=== PATIENT | male | born 1940 | race Caucasian/White ===

== ENCOUNTER 2019-04-13 19:41 | Inpatient (IN) ==
[2019-04-13] MEDS ORDERED: SODIUM CHLORIDE 0.9% 1000ML 1,000 ML IV ONE (20:07)
[2019-04-13 20:26] LABS: Basophils # (auto) 0.04 K/uL (0-0.2); Basophils % (auto) 0.6 %; Eosinophils # (auto) 0.42 K/uL (0-0.5); Hematocrit (blood only) 44.1 % (42-52); Hemoglobin 15.4 g/dL (14.0-18.0); Immature Granulocytes # (auto) 0.02 K/uL (0.00-0.02); Immature Granulocytes % (auto) 0.3 %; Lymphocytes # (auto) 1.94 K/uL (1.2-3.4); Lymphocytes % (auto) 27.5 %; Mean Corpuscular Hgb Conc 34.9 g/dL (32-36); Mean Corpuscular Volume 99.1 fL (80-100); Monocytes % (auto) 12.8 %; Neutrophils # (auto) 3.73 K/uL (1.4-6.5); Neutrophils % (auto) 52.8 %; Platelet Count 161 K/uL (130-400); RDW Coefficient of Variation 13.6 % (11.5-14.5); RDW Standard Deviation 48.9 fL (36.4-46.3); Red Blood Count 4.45 M/uL (4.7-6.1); White Blood Count 7.05 K/uL (4.8-10.8)
--- NOTE | 2019-04-13 20:31 | XRay Report ---
XR chest 1V portable CLINICAL HISTORY: weakness COMPARISON STUDY: No previous studies for comparison. FINDINGS: The heart is normal in size. There is no failure. There is no lobar consolidation. Slightly prominent basilar markings are likely atelectatic. There are no pleural effusions.[ IMPRESSION: No active disease in the chest. Electronically signed by: Obi Woodward M.D. 04/13/2019 8:29 PM
[2019-04-13 20:36] LABS: iSTAT Hemoglobin 15.6 g/dl (14.0-18.0); iSTAT Ionized Calcium 1.21 mmol/l (1.12-1.32); iSTAT Potassium 3.9 mEq/L (3.3-5.0)
[2019-04-13 20:37] LABS: INR 1.1 (0.9-1.1); Prothrombin Time 11.5 Seconds (9.0-12.0)
[2019-04-13 20:44] LABS: Alanine Aminotransferase 16 U/L (12-78); Albumin Level 3.5 gm/dl (3.4-5.0); BUN Creatinine Ratio 16.2 (10-20); Blood Urea Nitrogen 17 mg/dl (7-18); Calcium 8.5 mg/dl (8.5-10.1); Carbon Dioxide 30 mmol/L (21-32); Chloride 106 mmol/L (98-107); Creatinine Clr Calc Pharmacy 60.3 ml/min; Est GFR (African American) 78.2; Est GFR (Non-African American) 67.5; Glucose 100 mg/dl (70-99); Magnesium 2.2 mg/dl (1.8-2.4); Potassium 3.9 mmol/L (3.5-5.1); Sodium 139 mmol/L (136-145)
[2019-04-13] MEDS ORDERED: OPTIRAY 320 125ml IV PRN (20:49)
[2019-04-13 20:55] LABS: Albumin Globulin Ratio 1.1 (0.9-2); Alkaline Phosphatase 77 U/L (45-117); Aspartate Aminotransferase 13 U/L (15-37); Bilirubin,Total 0.3 mg/dl (0.2-1); Globulin 3.3 gm/dl (2.5-4.0); Total Protein 6.8 gm/dl (6.4-8.2); Troponin I < 0.015 ng/ml (0-0.045)
--- NOTE | 2019-04-13 20:55 | CT Scan Report ---
CT head/brain wo con CLINICAL HISTORY: Transient right eye temporal vision loss COMPARISON STUDY: No previous studies for comparison. TECHNIQUE: Axial CT of the brain is performed from the vertex to the skull base. IV contrast was not administered for this examination. A dose lowering technique was utilized adhering to the principles of ALARA. CT DOSE: FINDINGS: No intra or extra-axial mass lesions are visualized. There is no CT evidence of acute cortical infarc tion. There is no evidence of midline shift. There is no acute hemorrhage. No calvarial fractures ar e visualized. There are patchy white matter hypodensities likely on a small vessel basis. There is a small old left occipital infarct There is mild ventricular prominence likely secondary to volume loss There is no evidence of acute sinusitis IMPRESSION: 1. No acute intracranial findings 2. 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 04/13/2019 8:54 PM
--- NOTE | 2019-04-13 21:04 | CT Scan Report ---
CT angio neck with con CLINICAL HISTORY: Transient right eye temporal vision loss COMPARISON STUDY: No previous studies for comparison. TECHNIQUE: CT angiography was performed from the aortic arch to the skull base. MIP imaging was perfo rmed. The patient was scanned in a dynamic helical fashion during intravenous administration of 119 c c of Optiray 320. A dose lowering technique was utilized adhering to the principles of ALARA. CT DOSE: Technique: CT angiogram of the carotid and vertebral arteries was obtained using intravenous contrast and 3-D reconstruction. NASCET criteria was utilized. Findings: The visualized portions lung apices reveal pulmonary emphysema There is kinking of the proximal right common carotid artery without evidence of unilaterally signifi cant narrowing. There is calcified plaque at the level of the right carotid bulb and proximal right i nternal carotid artery resulting in a 25% diameter narrowing. There is no evidence of dissection or a neurysm. There is extensive calcific plaque within the left common carotid artery resulting in a 60% diameter narrowing. There is extensive calcific plaque at the level of the carotid bulb resulting a 37% diamet er stenosis. There is no evidence of hemodynamically significant vertebral stenosis. There is no evidence of verte bral dissection. IMPRESSION: 1. Moderately extensive calcific atheromatous plaque 2. No evidence of hemodynamically significant right carotid artery stenosis 3. 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 4. No evidence of hemodynamically significant left internal carotid artery stenosis 5. No evidence of vertebral artery stenosis Electronically signed by: Obi Woodward M.D. 04/13/2019 9:03 PM
--- NOTE | 2019-04-13 21:07 | CT Scan Report ---
CT angio head w con CLINICAL HISTORY: Transient right eye temporal vision loss TECHNIQUE: CT angiography of the head was performed in a dynamic helical fashion during intravenous a dministration of 119 cc of Optiray 320. MIP imaging was performed. A dose lowering technique was util ized adhering to the principles of ALARA. CT DOSE: 1073.87 mGy.cm COMPARISON STUDY: No previous studies for comparison. FINDINGS: There are no lesion suspicious for aneurysm. There are no major intracranial branch occlusi ons. The dural venous sinuses appear patent. IMPRESSION: Unremarkable CT angiography of the brain Electronically signed by: Obi Woodward M.D. 04/13/2019 9:06 PM
--- NOTE | 2019-04-13 21:13 | Emergency Department Note ---
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 He states that the "suddenly lost" peripheral vision in his right eye when he was playing cards this evening. The patient reports that he had a headache earlier today, but he denies any current headache. He denies any difficulty speaking, weakness, or current loss of vision. The patient's partner, at bedside, states that he had an episode of bilateral leg weakness and difficulty walking a few weeks ago. The patient reports that he saw his PCP, and she believed that this episode was caused by his chronic back pain. The patient reports that he has a history of cataract surgery in both eyes. He notes that he wears glasses. The patient denies using any daily eye drops. He reports that he take Lisinopril daily. He states that he has floaters in his vision, but they have no worsened recently. Home Medications Home Medications Medication Instructions Recorded Confirmed Type albuterol sulfate [Ventolin HFA] 2 puff INHALATION QID PRN 04/13/19 04/13/19 History atenolol 25 mg PO DAILY 04/13/19 04/13/19 History atorvastatin 40 mg PO DAILY 04/13/19 04/13/19 History budesonide-formoterol [Symbicort] 1 puff INHALATION QPM 04/13/19 04/13/19 History coenzyme Q10 [Co Q-10] 100 mg PO DAILY 04/13/19 04/13/19 History cyanocobalamin (vitamin B-12) 2,500 mcg PO DAILY 04/13/19 04/13/19 History levothyroxine 50 mcg PO DAILY 04/13/19 04/13/19 History lisinopril 5 mg PO DAILY 04/13/19 04/13/19 History nicotine (polacrilex) [Nicorette] 2 mg BUCCAL Q8H PRN 04/13/19 04/13/19 History omeprazole 20 mg PO BID 04/13/19 04/13/19 History pyridoxine (vitamin B6) [Vitamin 100 mg PO DAILY 04/13/19 04/13/19 History B-6] thiamine HCl (vitamin B1) [Vitamin 250 mg PO DAILY 04/13/19 04/13/19 History B-1] aspirin [Aspir-81] 81 mg PO BID 04/14/19 04/14/19 History Allergies Allergy/AdvReac Type Severity Reaction Status Date / Time No Known Allergies Allergy Unverified 04/13/19 21:52 Past Med/Surg History Medical History Back pain, chronic Hypertension Surgical History History of cataract surgery Family History Other Family history non-contributory Social History Preferred Language: Irish Communication Ability: Effective Beliefs That Will Affect Care: None Current Living Situation: Spouse Feels Safe at Home: Yes Smoking Status: Current every day smoker Tobacco Type: cigarettes and cigars Do You Dip or Chew Tobacco: No Second Hand Exposure: No Hx Alcohol Use: Yes Alcohol type: hard liquor Hx Substance Use: No Review of Systems See HPI for pertinent positives & negatives. and A total of 10 systems reviewed and were otherwise negative Physical Exam Vital Signs Vital Signs - 24 hr 04/13/19 19:43 04/13/19 21:54 Temperature 36.4 C L Temperature Source Oral Sepsis Recent Fever Within 48 Hours No Sepsis New/Unexplained Change in Mental Status No Sepsis Action Taken by Nursing No Action Required Pulse Rate 66 Pulse Rate [Left Apical] 70 Respiratory Rate 16 18 Respiratory Effort / Characteristics Non-Labored Spontaneous Non-Labored Respiratory Depth Normal Normal Respiratory Pattern Regular Blood Pressure 171/96 H Blood Pressure [Left Arm] 176/104 H Blood Pressure Mean 121 Blood Pressure Mean [Left Arm] 128 Pulse Oximetry 96 95 Oxygen Delivery Method Room Air Room Air GENERAL: Awake, alert, well-appearing, in no distress HENT: Normocephalic, atraumatic. Oropharynx with dry mucous membranes and otherwise unremarkable. EYES: Normal conjunctiva. Sclera non-icteric. EOMI. No nystamgus. PEARRL. NECK: Supple. No nuchal rigidity. FROM. No JVD. RESPIRATORY: CTAB. CARDIAC: Regular rate, normal rhythm. Extremities warm and well perfused. Pulses equal. ABDOMEN: Soft, non-distended. No tenderness to palpation. No rebound or guarding. No masses. RECTAL: Deferred. MUSCULOSKELETAL: Chest examination reveals no tenderness. The back is symmetrical on inspection without obvious abnormality. There is no CVA tenderness to palpation. No joint edema. LOWER EXTREMITIES: Calves are equal size bilaterally and non-tender. No edema. No discoloration. NEURO: Normal sensorium. No sensory or motor deficits noted. 5/5 strength and SILT x4 extremities. Cerebellar function intact, including finger to nose, alternating palms, heel to [place]. SKIN: No rash or jaundice noted. Course 1957: The patient was evaluated in room C10. A complete history and physical exam was performed. 2201: I reevaluated the patient and updated him and his family on the results. 2206: I spoke with Dr. Payne, [facility], about the patients case. He will further evaluate the patient. Consultations Consultation #1: I spoke with Dr. Payne, [facility], about the patients case. He will further evaluate the patient. Time: 22:07 Administered Medications Discontinued Medications Sodium Chloride (Nss 1000ml) 1,000 mls @ 999 mls/hr IV .Q1H1M ONE Stop: 04/13/19 21:07 Last Infusion: 04/13/19 21:57 Dose: 0 mls/hr Documented by: [id number] Admin: 04/13/19 20:30 Dose: 999 mls/hr Documented by: [id number] Ioversol (Optiray 320 125ml) 119 ml IV ONCE PRN PRN Reason: Interaction Checking Stop: 04/17/19 20:48 Last Admin: 04/13/19 20:49 Dose: 119 ml Documented by: [id number] Medical Decision Making Differential Diagnosis Differential includes acute coronary syndrome, myocardial infarction, CVA, TIA, anemia, infection, pneumonia, UTI, pyelonephritis, poor nutrition, dehydration, electrolyte disturbance,hypoglycemia. Medical Records Attestation: I reviewed the patient's medical records. Home Medications Current Medication List: was personally reviewed by me Laboratory Data Attestation: I reviewed the patient's lab results. Result diagrams: 04/13/19 20:13 04/13/19 20:13 Lab Results 04/13/19 04/13/19 04/13/19 Range/Units 20:13 20:13 20:13 WBC 7.05 (4.8-10.8) K/uL RBC 4.45 L (4.7-6.1) M/uL Hgb 15.4 (14.0-18.0) g/dL POC Hgb (14.0-18.0) g/dl Hct 44.1 (42-52) % POC Hct (42-52) % MCV 99.1 (80-100) fL MCH 34.6 H (25-34) pg MCHC 34.9 (32-36) g/dL RDW Std Deviation 48.9 H (36.4-46.3) fL RDW Coeff of Arnel 13.6 (11.5-14.5) % Plt Count 161 (130-400) K/uL MPV 9.0 (7.4-10.4) fL Immature Gran % (Auto) 0.3 % Neut % (Auto) 52.8 % Lymph % (Auto) 27.5 % Perry % (Auto) 12.8 % Eos % (Auto) 6.0 % Baso % (Auto) 0.6 % Immature Gran # (Auto) 0.02 (0.00-0.02) K/uL Neut # (Auto) 3.73 (1.4-6.5) K/uL Lymph # (Auto) 1.94 (1.2-3.4) K/uL Perry # (Auto) 0.90 H (0.11-0.59) K/uL Eos # (Auto) 0.42 (0-0.5) K/uL Baso # (Auto) 0.04 (0-0.2) K/uL PT 11.5 (9.0-12.0) Seconds INR 1.1 (0.9-1.1) APTT 27.0 (21.0-31.0) Seconds PTT Ratio 1.0 POC Sodium (135-144) mEq/L Sodium 139 (136-145) mmol/L POC Potassium (3.3-5.0) mEq/L Potassium 3.9 (3.5-5.1) mmol/L POC Chloride (101-112) mEq/L Chloride 106 (98-107) mmol/L Carbon Dioxide 30 (21-32) mmol/L POC Total CO2 (24-31) mEq/l Anion Gap 3.0 (3-11) POC Anion Gap (16-25) mmol/L POC BUN (7-18) mg/dl BUN 17 (7-18) mg/dl Creatinine 1.04 (0.6-1.4) mg/dl POC Creatinine (0.6-1.3) mg/dl Est Cr Clr Drug Dosing 60.3 ml/min Est GFR ( Amer) 78.2 Est GFR (Non-Af Amer) 67.5 BUN/Creatinine Ratio 16.2 (10-20) Glucose 100 H (70-99) mg/dl POC Glucose (other) (70-99) mg/dl Calcium 8.5 (8.5-10.1) mg/dl POC Ioniz Calcium Rita (1.12-1.32) mmol/l Phosphorus 3.0 (2.5-4.9) mg/dl Magnesium 2.2 (1.8-2.4) mg/dl Total Bilirubin 0.3 (0.2-1) mg/dl AST 13 L (15-37) U/L ALT 16 (12-78) U/L Alkaline Phosphatase 77 (45-117) U/L Troponin I < 0.015 (0-0.045) ng/ml Total Protein 6.8 (6.4-8.2) gm/dl Albumin 3.5 (3.4-5.0) gm/dl Globulin 3.3 (2.5-4.0) gm/dl Albumin/Globulin Ratio 1.1 (0.9-2) TSH 5.730 H (0.300-4.500) uIu/ml Free T4 1.01 (0.8-1.6) ng/dl Urine Color Urine Appearance (Clear) Urine pH (4.5-7.5) Ur Specific [place] (1.000-1.030) Urine Protein (Negative) Urine Glucose (UA) (Negative) Urine Ketones (Negative) Urine Blood (Negative) Urine Nitrite (Negative) Urine Bilirubin (Negative) Urine Urobilinogen (Negative) Ur Leukocyte Esterase (Negative) Urine WBC (Auto) (0-5) /hpf Urine RBC (Auto) (0-4) /hpf U Hyaline Cast (Auto) (0-5) /lpf U Epithel Cells (Auto) (0-5) /lpf Urine Bacteria (Auto) (Negative) 04/13/19 04/13/19 04/13/19 Range/Units 20:13 20:24 21:58 WBC (4.8-10.8) K/uL RBC (4.7-6.1) M/uL Hgb (14.0-18.0) g/dL POC Hgb 15.6 (14.0-18.0) g/dl Hct (42-52) % POC Hct 46 (42-52) % MCV (80-100) fL MCH (25-34) pg MCHC (32-36) g/dL RDW Std Deviation (36.4-46.3) fL RDW Coeff of Arnel (11.5-14.5) % Plt Count (130-400) K/uL MPV (7.4-10.4) fL Immature Gran % (Auto) % Neut % (Auto) % Lymph % (Auto) % Perry % (Auto) % Eos % (Auto) % Baso % (Auto) % Immature Gran # (Auto) (0.00-0.02) K/uL Neut # (Auto) (1.4-6.5) K/uL Lymph # (Auto) (1.2-3.4) K/uL [place] # (Auto) (0.11-0.59) K/uL Eos # (Auto) (0-0.5) K/uL Baso # (Auto) (0-0.2) K/uL PT (9.0-12.0) Seconds INR (0.9-1.1) APTT (21.0-31.0) Seconds PTT Ratio POC Sodium 140 (135-144) mEq/L Sodium (136-145) mmol/L POC Potassium 3.9 (3.3-5.0) mEq/L Potassium (3.5-5.1) mmol/L POC Chloride 101 (101-112) mEq/L Chloride (98-107) mmol/L Carbon Dioxide (21-32) mmol/L POC Total CO2 25 (24-31) mEq/l Anion Gap (3-11) POC Anion Gap 19.0 (16-25) mmol/L POC BUN 18 (7-18) mg/dl BUN (7-18) mg/dl Creatinine (0.6-1.4) mg/dl POC Creatinine 1.0 (0.6-1.3) mg/dl Est Cr Clr Drug Dosing ml/min Est GFR ( Amer) Est GFR (Non-Af Amer) BUN/Creatinine Ratio (10-20) Glucose (70-99) mg/dl POC Glucose (other) 104 H (70-99) mg/dl Calcium (8.5-10.1) mg/dl POC Ioniz Calcium Rita 1.21 (1.12-1.32) mmol/l Phosphorus Cancelled (2.5-4.9) mg/dl Magnesium (1.8-2.4) mg/dl Total Bilirubin (0.2-1) mg/dl AST (15-37) U/L ALT (12-78) U/L Alkaline Phosphatase (45-117) U/L Troponin I (0-0.045) ng/ml Total Protein (6.4-8.2) gm/dl Albumin (3.4-5.0) gm/dl Globulin (2.5-4.0) gm/dl Albumin/Globulin Ratio (0.9-2) TSH Cancelled (0.300-4.500) uIu/ml Free T4 (0.8-1.6) ng/dl Urine Color Yellow Urine Appearance Clear (Clear) Urine pH 6.0 (4.5-7.5) Ur Specific [place] > 1.045 H (1.000-1.030) Urine Protein Negative (Negative) Urine Glucose (UA) Negative (Negative) Urine Ketones Negative (Negative) Urine Blood Trace H (Negative) Urine Nitrite Negative (Negative) Urine Bilirubin Negative (Negative) Urine Urobilinogen Negative (Negative) Ur Leukocyte Esterase Trace H (Negative) Urine WBC (Auto) 5-10 H (0-5) /hpf Urine RBC (Auto) 0-4 (0-4) /hpf U Hyaline Cast (Auto) 0 (0-5) /lpf U Epithel Cells (Auto) 5-10 H (0-5) /lpf Urine Bacteria (Auto) Negative (Negative) Imaging Data Radiologist's Impression: Radiology results as stated below per my review and the radiologist's interpretation: CT angio head w con CLINICAL HISTORY: Transient right eye temporal vision loss TECHNIQUE: CT angiography of the head was performed in a dynamic helical fashion during intravenous administration of 119 cc of Optiray 320. MIP imaging was performed. A dose lowering technique was utilized adhering to the principles of ALARA. CT DOSE: 1073.87 mGy.cm COMPARISON STUDY: No previous studies for comparison. FINDINGS: There are no lesion suspicious for aneurysm. There are no major intracranial branch occlusions. The dural venous sinuses appear patent. IMPRESSION: Unremarkable CT angiography of the brain Electronically signed by: Obi Woodward M.D. 04/13/2019 9:[address] angio neck with con CLINICAL HISTORY: Transient right eye temporal vision loss COMPARISON STUDY: No previous studies for comparison. TECHNIQUE: CT angiography was performed from the aortic arch to the skull base. MIP imaging was performed. The patient was scanned in a dynamic helical fashion during intravenous administration of 119 cc of Optiray 320. A dose lowering technique was utilized adhering to the principles of ALARA. CT DOSE: Technique: CT angiogram of the carotid and vertebral arteries was obtained using intravenous contrast and 3-D reconstruction. NASCET criteria was utilized. Findings: The visualized portions lung apices reveal pulmonary emphysema There is kinking of the proximal right common carotid artery without evidence of unilaterally significant narrowing. There is calcified plaque at the level of the right carotid bulb and proximal right internal carotid artery resulting in a 25% diameter narrowing. There is no evidence of dissection or aneurysm. There is extensive calcific plaque within the left common carotid artery resulting in a 60% diameter narrowing. There is extensive calcific plaque at the level of the carotid bulb resulting a 37% diameter stenosis. There is no evidence of hemodynamically significant vertebral stenosis. There is no evidence of vertebral dissection. IMPRESSION: 1. Moderately extensive calcific atheromatous plaque 2. No evidence of hemodynamically significant right carotid artery stenosis 3. 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 4. No evidence of hemodynamically significant left internal carotid artery stenosis 5. No evidence of vertebral artery stenosis Electronically signed by: Obi Woodward M.D. 04/13/2019 9:[address] head/brain wo con CLINICAL HISTORY: Transient right eye temporal vision loss COMPARISON STUDY: No previous studies for comparison. TECHNIQUE: Axial CT of the brain is performed from the vertex to the skull base. IV contrast was not administered for this examination. A dose lowering technique was utilized adhering to the principles of ALARA. CT DOSE: FINDINGS: No intra or extra-axial mass lesions are visualized. There is no CT evidence of acute cortical infarction. There is no evidence of midline shift. There is no acute hemorrhage. No calvarial fractures are visualized. There are patchy white matter hypodensities likely on a small vessel basis. There is a small old left occipital infarct There is mild ventricular prominence likely secondary to volume loss There is no evidence of acute sinusitis IMPRESSION: 1. No acute intracranial findings 2. 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 04/13/2019 8:54 PM XR chest 1V portable CLINICAL HISTORY: weakness COMPARISON STUDY: No previous studies for comparison. FINDINGS: The heart is normal in size. There is no failure. There is no lobar consolidation. Slightly prominent basilar markings are likely atelectatic. There are no pleural effusions.[ IMPRESSION: No active disease in the chest. Electronically signed by: Obi Woodward M.D. 04/13/2019 8:29 PM ECG Data Attestation: I personally reviewed and interpreted this ECG as follows: Indication: other (visual disturbance) Rate (beats per minute): 66 Rhythm: sinus rhythm Findings: + other (normal axis) and + PAC; no acute ischemic change Blood Pressure Blood Pressure Findings: Elevated blood pressure Blood Pressure Disposition: further management by hospitalist AVILA Narrative The patient is a pleasant 78 y/o gentleman with a pmhx of HTN, HLD who presents to the emergency department with transient loss of temporal peripheral vision of right per HPI. Patient reports playing cards today shortly prior to arrival when his symptoms began. Upon arrival symptoms resolved. On arrival the patient is in NAD, AFVSS. Patient appears clinically dry. No gross visual field deficits on exam. Speech fluent and normal. EOMI. No nystamgus. PEARRL. Cerebellar function intact including [id number], alternating palms, [id number]. 5/5 strength and SILT x 4 extremities. EKG without evidence of acute ischemia. CXR negative. WBC, H/H, platelets wnl. Chemistry without acidosis. LFTs and electrolytes unremarkable. Troponin negative. UA without convincing infection. Limited bedside ocular US negative for gross vitreous or retinal detachment. CT/CTA of head and neck demonstrates old small left occipital lobe infarct. Thus, patient's sx could be c/w TIA. Given evidence of old stroke, reasonable to admit patient for further stroke evaluation and likey MRI and neurology consultation. Case was discussed with Dr. Payne, [facility] hospitalist, who will evaluate the patient for admission. Impression & Plan Stroke-like symptoms Discharge Plan Visit Data *Final* Discharge Date/Time: 04/13/19 23:20 Chief Complaint: Visual Disturbance Stated Complaint: POSSIBLE STROKE Other Complaint: TIA Symptoms ED Provider: Dileep Ruelas Discharge Problem: Stroke-like symptoms Patient Disposition: Admitted As Inpatient Discharge Instructions Interventions: ED Discharge Assessment Last Done: 04/13/19 23:20 The scribe's documentation has been prepared under my direction and personally reviewed by me in its entirety. I confirm that the note above accurately reflects all work, treatment, procedures, and medical decision making performed by me.
[2019-04-13 22:09] LABS: Appearance Urine Clear (Clear); Bacteria Urine Automated Negative (Negative); Bilirubin Urine Negative (Negative); Blood Urine Trace (Negative); Cast Urine Automated 0 /lpf (0-5); Color Urine Yellow; Glucose Urine UA Negative (Negative); Ketones Urine Negative (Negative); Leukocyte Esterase Urine Trace (Negative); Nitrite Urine Negative (Negative); Protein Urine Negative (Negative); RBC Urine Automated 0-4 /hpf (0-4); Specific Gravity Urine > 1.045 (1.000-1.030); Urobilinogen Urine Negative (Negative)
[2019-04-13 22:14] LABS: T4 Free Thyroxine 1.01 ng/dl (0.8-1.6)
[2019-04-13] MEDS ORDERED: PHARMACIST DISCHARGE MED REC CONSULT PRN (23:40)
[2019-04-13] MEDS ORDERED: ONDANSETRON INJ 2 MG/ML 2 ML VIAL IV PRN (23:40)
[2019-04-13] MEDS ORDERED: ACETAMINOPHEN 325 MG TAB PO PRN (23:40)
[2019-04-13] MEDS ORDERED: POLYETHYLENE (MIRALAX) 17 GM PACK PO PRN (23:40)
[2019-04-13] MEDS ORDERED: ALBUTEROL HFA 8 GM INHALER INH PRN (23:40)
[2019-04-13] MEDS ORDERED: NICOTINE POLACRILEX 2 MG GUM MT PRN (23:40)
[2019-04-13] MEDS ORDERED: NITROGLYCERIN SL 0.4 MG/TAB TAB SL PRN (23:40)
--- NOTE | 2019-04-14 00:07 | History and Physical Report ---
DATE OF ADMISSION: 04/13/2019 CHIEF COMPLAINT: Transient right peripheral vision loss. HISTORY OF PRESENT ILLNESS: This 78-year-old male with past medical history significant for hypertension, tobacco abuse, COPD, hyperlipidemia, hypothyroidism, GERD, presents with alcoholism, presents with transient right peripheral vision loss. The patient is visiting his daughter's house. He and his live about 3 hours from here. They were playing cards today when his suddenly noticed right eye peripheral vision loss. He says it lasted for about 1-2 hours, now he is back to his normal and never had this issue before. He had some left frontal headache, but that is gone now. He is currently resting comfortably and he is hemodynamically stable. Denies any other complaints. Currently no headache, no dizziness, currently seeing okay. No earache, no runny nose, no sore throat, no difficulty swallowing. Appetite is good. Sleeps okay. He uses CPAP at night. No night sweats. No recent weight loss. He thinks, he might have gained a little bit of weight. No chest pain, no shortness of breath. Has occasional cough which is usual for him. No fever, no chills, no nausea, no vomiting, no abdominal pain. Normal bowel and bladder movements. No blood in the stools, no black stools, no hematuria, no burning micturition. No swelling in the legs. He says couple of weeks ago for couple of minutes had difficulty ambulating because of weakness in the legs, but ambulating fine since then.. Currently he is walking, ambulating fine without any difficulty. He has also history of chronic back pain, takes Tylenol and plan to see a pain doctor next week. ALLERGIES: No known drug allergies. PAST MEDICAL HISTORY: As mentioned above. PAST SURGICAL HISTORY: Had right wrist fracture. MEDICATIONS: The patient is on albuterol 2 puffs inhalation q.i.d. p.r.n., metoprolol 25 mg p.o. daily, atorvastatin 40 mg p.o. daily, Symbicort 1 puff q.p.m., Coenzyme Q10 100 mg p.o. daily, vitamin B12 2500 mcg p.o. daily, levothyroxine 50 mcg p.o. daily, lisinopril 5 mg p.o. daily, nicotine 2 mg buccal q. 8 hours p.r.n., omeprazole 20 mg p.o. b.i.d., vitamin B6 100 mg p.o. daily, vitamin B1 250 mg p.o. daily. FAMILY HISTORY: Noncontributory. SOCIAL HISTORY: Smokes half pack a day for many years but right now he smokes 2 cigars daily. Alcohol, he used to drink heavily but lately cutting down. He drinks about a couple of shots of hard liquor, but not regularly. Last drink was last . He denies any withdrawal symptoms. Lives with his . REVIEW OF SYMPTOMS: As per HPI. Rest of review of symptoms negative. PHYSICAL EXAMINATION: GENERAL: The patient is of moderate build, not in acute distress. VITAL SIGNS: Temperature 36.4, pulse 70, respiratory rate 18, blood pressure 176/104, oxygen 95% room air. HEENT: No pallor, no icterus. Pupils equal, round, reactive to light. Extraocular muscles intact. Able to count fingers in all 4 quadrants in both eyes. NECK: No JVD, no neck masses, no carotid bruits. CARDIOVASCULAR: S1, S2 heard, regular rate and rhythm, no murmur, no gallop. RESPIRATORY SYSTEM: Normal AP diameter. No accessory muscle use. No wheezing, no crackles. ABDOMEN: Soft, bowel sounds present. Nontender. No distention. CENTRAL NERVOUS SYSTEM: Cranial nerves II-XII grossly nonfocal. Pulse 5/5 in all extremities. No pronator drift. Autobq-px-[id number] test normal. Heel to [place] test normal. Sensation is intact. Position sense intact. Babinski negative. EXTREMITIES: No edema, no erythema. LABS: WBC 7, hemoglobin 15.4, hematocrit 44.1, platelets 161. PT 11.5, INR 1.1, APTT 27. Sodium 139, potassium 3.9, chloride 106, bicarbonate 30, BUN 17, creatinine 1.04, serum glucose 100, calcium 8.5, magnesium 2.2, total bilirubin 0.3, AST 13, ALT 16, alkaline phosphatase 77. Troponin I less than 0.015. TSH 5.7, free T4 1.01. Urinalysis, trace leukocyte esterase. CT angio neck moderate extensive calcific erythematous plaque, no evidence of hemodynamically significant right carotid artery stenosis 60% diameter narrowing of left common carotid artery. No evidence of hemodynamically significant left internal carotid artery stenosis. No evidence of vertebral artery stenosis. 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 Chest x-ray, no active disease in the chest. EKG: Sinus rhythm with PACs at a rate of 66, no previous ECG is available. ASSESSMENT AND PLAN: This is an 78-year-old male who presents with transient right peripheral vision loss. 1. Transient right peripheral vision loss of about 1-2 hours, currently vision is back to his normal. No similar episodes. Initial workup is negative except for old left occipital infarct on the CAT scan. The patient is on statin and also on aspirin twice daily. We will do full stroke workup with an MRI of the head, echocardiogram. PT and OT, speech evaluation. Neurology consult in a.m. Closely monitor on tele floor. 2. History of hypertension. Continue his atenolol and lisinopril. We will monitor his blood pressure. 3. History of hyperlipidemia. Continue statin. 4. History of chronic obstructive pulmonary disease, tobacco abuse. Continue his home inhalers, currently stable. 5. History of hypothyroidism. Continue Synthroid. 6. History of gastroesophageal reflux disease. Continue omeprazole. 7. History of alcoholism. He used to drink heavily in the past, but is cutting down. He drinks couple of shots of hard liquor daily, but try to not drink every day, last drink was on last . Says he does not have any withdrawal symptoms. We will continue his home multivitamin . Will monitor for any withdrawals. 8. UA mildly positive. Will follow cultures. 9. Deep venous thrombosis prophylaxis, sequential compression devices for now. 10. Disposition: Close monitor in the tele floor. Level 1 full code. MTDD
[2019-04-14 05:52] LABS: Basophils # (auto) 0.03 K/uL (0-0.2); Basophils % (auto) 0.4 %; Eosinophils # (auto) 0.54 K/uL (0-0.5); Eosinophils % (auto) 6.6 %; Hematocrit (blood only) 43.6 % (42-52); Hemoglobin 15.3 g/dL (14.0-18.0); Immature Granulocytes # (auto) 0.02 K/uL (0.00-0.02); Immature Granulocytes % (auto) 0.2 %; Lymphocytes # (auto) 2.27 K/uL (1.2-3.4); Lymphocytes % (auto) 27.9 %; Mean Corpuscular Hgb Conc 35.1 g/dL (32-36); Mean Corpuscular Volume 98.9 fL (80-100); Mean Platelet Volume 9.3 fL (7.4-10.4); Monocytes # (auto) 1.12 K/uL (0.11-0.59); Monocytes % (auto) 13.8 %; Neutrophils # (auto) 4.16 K/uL (1.4-6.5); Neutrophils % (auto) 51.1 %; Platelet Count 162 K/uL (130-400); RDW Coefficient of Variation 13.5 % (11.5-14.5); RDW Standard Deviation 48.8 fL (36.4-46.3); Red Blood Count 4.41 M/uL (4.7-6.1); White Blood Count 8.14 K/uL (4.8-10.8)
[2019-04-14 06:23] LABS: BUN Creatinine Ratio 15.8 (10-20); Calcium 8.3 mg/dl (8.5-10.1); Creatinine Clr Calc Pharmacy 70.5 ml/min; Est GFR (African American) 93.6; Est GFR (Non-African American) 80.8; Potassium 3.9 mmol/L (3.5-5.1)
[2019-04-14] MEDS: LEVOTHYROXINE SODIUM 50 MCG TABLET PO SCH (06:34)
[2019-04-14] MEDS: ATORVASTATIN 40 MG TAB PO SCH (08:09)
[2019-04-14] MEDS: THIAMINE HCL 100 MG TAB PO SCH (08:09)
[2019-04-14] MEDS: PANTOprazole 40 MG TAB PO SCH ×2 (08:09→21:21)
[2019-04-14] MEDS: PYRIDOXINE HCL 50 MG TAB PO SCH (08:10)
[2019-04-14] MEDS: CYANOCOBALAMIN (VITAMIN B-12) 2,500 MCG TAB.SUBL SL SCH (08:10)
[2019-04-14] MEDS: LISINOPRIL 5 MG TAB PO SCH (08:14)
[2019-04-14] MEDS: ATENOLOL 25 MG TABLET PO SCH (08:14)
[2019-04-14] MEDS ORDERED: PERFLUTREN LIPID MICROSPHERE (DEFINITY) IV ONE (08:45)
[2019-04-14] MEDS: ASPIRIN 81 MG ECTAB PO SCH ×2 (08:56→21:21)
[2019-04-14] MEDS ORDERED: NON-FORMULARY MEDICATION (Coenzyme Q10 [Co Q-10] 100 MG) PO SCH (09:00)
[2019-04-14] MEDS ORDERED: GADOBUTROL 10ML VIAL IV PRN (09:26)
--- NOTE | 2019-04-14 10:35 | Magnetic Resonance Report ---
MRI OF THE BRAIN COMBO CLINICAL HISTORY: Amaurosis fugax of the right eye. COMPARISON STUDY: CT of the brain dated 04/13/2019. TECHNIQUE: MRI of the brain was performed utilizing various T1 and T2-weighted sequences in the axial , sagittal, and coronal planes. Contrast-enhanced sequences were acquired following the administratio n of 10 cc of Gadavist. Examination is degraded by motion artifact. FINDINGS: Brain parenchyma: There is age-related involutional change noting moderate confluent subcortical and periventricular microangiopathic disease. There is restricted diffusion identified throughout the lef t AEROSPACE ENGINEER territory indicating acute to subacute ischemia. A punctate focus of restricted diffusion is al so seen in the left cerebellar hemisphere indicating lacunar infarct. There is no hemorrhage or mass effect. No enhancing mass lesion is identified on the postcontrast images. No extra-axial fluid colle ction is seen. The cerebellar tonsils are normal in configuration. Ventricles, sulci, and cisterns: Prominent secondary to involutional change. Pituitary and sella: Unremarkable. Intracranial vasculature: Normal flow voids are maintained at the skull base. Orbits: The bony orbits are grossly intact. Orbital contents are normal in appearance noting bilatera l ocular lens implants. Sinuses and mastoids: Mild mucosal thickening is noted within the right frontal and ethmoid sinuses. The remaining paranasal sinuses are clear. The mastoid air cells are well pneumatized. Calvarium: Unremarkable. Cervical cord: Partially visualized cervical spinal cord is normal in morphology and signal intensity . IMPRESSION: 1. Findings are consistent with an acute to subacute left AEROSPACE ENGINEER territory infarct. 2. There is a punctate acute to subacute lacunar infarct identified in the left cerebellar hemisphere . 3. No additional foci of acute ischemia are identified. 4. There is no hemorrhage or mass effect. Electronically signed by: Ash Hubbard M.D. 04/14/2019 10:33 AM
[2019-04-14] MEDS ORDERED: CLOPIDOGREL BISULFATE 75 MG TAB PO ONE (11:41)
--- NOTE | 2019-04-14 11:48 | Communication Note ---
Date of Service: April 14, 2019 I have seen Mr. 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 which on imaging studies is normal and is also not associated with any significant abnormalities on echocardiographic study At this point the differential diagnosis would be atheromatous plaque in the aorta versus paroxysmal atrial fibrillation versus a truly indeterminant causation for his CVA I would recommend we hold him overnight and if asymptomatic with normal vital signs then permit him to be discharged tomorrow to return to his home in [place] on a combination of aspirin 81 mg and Plavix 75 mg he apparently has been taking the aspirin all along so this event would constitute a "aspirin failure " Our policy knows to continue dual antiplatelet treatment for 21 days and then switch over to a single antiplatelet agent-in this case Plavix-for the foreseeable future. I would suggest that he have a ZIO Patch done on an outpatient basis. It appears that he may have had this done previously although does not recall the reason but was told the result was normal it is possible that the question of paroxysmal atrial fibrillation has been raised in his case in the past I would suggest he be discharged with appropriate copies of his medical records and CDs of his imaging studies so that he could provide these to his numerous physicians in [place], [place] and at the [facility] I have taken liberty of adding Plavix to his medications A complete consultation has been dictated but will not be typed until later this afternoon Rainer Jerez MD
[2019-04-14 12:12] LABS: Appearance Urine Clear (Clear); Bacteria Urine Automated Negative (Negative); Bilirubin Urine Negative (Negative); Blood Urine Negative (Negative); Cast Urine Automated 0 /lpf (0-5); Color Urine Yellow; Epithelial Cell Urine Auto 0-5 /lpf (0-5); Glucose Urine UA Negative (Negative); Ketones Urine Negative (Negative); Leukocyte Esterase Urine 1+ (Negative); Nitrite Urine Negative (Negative); Protein Urine Negative (Negative); RBC Urine Automated 0-4 /hpf (0-4); Specific Gravity Urine 1.021 (1.000-1.030); Urobilinogen Urine Negative (Negative)
--- NOTE | 2019-04-14 13:31 | Hospitalist Progress Note ---
Date of Service April 14, 2019 Assessment & Plan (1) Acute left CIVIL ENGINEER'S AIDE stroke: Presented with an transient right peripheral vision loss Did not have any other acute neurological symptoms MRI did show Acute acute to subacute left CIVIL ENGINEER'S AIDE territory infarct and punctate acute to subacute lacunar infarct in the left cerebellar hemisphere Transthoracic echo is unremarkable CT of the neck showed 60% diameter narrowing of the left common carotid artery. Outpatient vascular surgery evaluation recommended . Appreciate neurology input and recommendation Has been on aspirin and Plavix is added Likely be discharged tomorrow Present on Admission?: Yes (2) COPD (chronic obstructive pulmonary disease): History of tobacco abuse Continue current inhalers Does not have any acute exacerbation (3) HTN (hypertension): Blood pressure seems to be under control We will continue current medications (4) GERD (gastroesophageal reflux disease): No additional reflux symptoms (5) Hypothyroidism: Continue replacement DVT prophylaxis SCDs and increase ambulation Subjective 04/14 The patient was seen and examined in telemetry unit He is an 78-year-old male with significant past medical history of hypertension, tobacco abuse, COPD, hyperlipidemia and hypothyroidism was admitted with transient right peripheral visual loss Does not have any complaints today Denies any neurological symptoms Review of Systems Review of Systems: All systems reviewed and are unremarkable except noted below Constitutional: No apparent distress Neurologic: No focal sensory and/or motor deficit Physical Exam Physical Exam: No apparent distress at rest Constitutional: well developed and well nourished; no acute distress Eyes: PERRL, conjunctivae normal, anicteric sclerae ENMT: external ear and nose normal, oropharynx normal Neck: trachea midline, no thyromegaly Respiratory: normal respiratory effort Auscultation: lungs clear to auscultation bilaterally Cardiovascular: Rate/Rhythm: regular rate and regular rhythm Heart Sounds: no murmur Gastrointestinal (Abdomen): normal bowel sounds, soft, nontender, no hepatosplenomegaly Neurologic: PERRL, EOMI, accommodation nl, no face palsy, no dysarthria Lymphatic: no cervical or axillary lymphadenopathy Results & Data Vital Signs (Past 12 Hours) Vital Signs Temp Pulse Pulse Resp BP Pulse Ox 04/14/19 11:34 37.5 C 63 18 164/88 H 94 04/14/19 08:40 63 04/14/19 08:05 36.5 C 71 18 177/93 H 93 04/14/19 03:33 36.5 C 65 14 153/94 H 96 Laboratory Results Short CBC 04/13/19 04/14/19 Range/Units 20:13 05:31 WBC 7.05 8.14 (4.8-10.8) K/uL Hgb 15.4 15.3 (14.0-18.0) g/dL Hct 44.1 43.6 (42-52) % Plt Count 161 162 (130-400) K/uL BMP 04/13/19 04/14/19 20:13 05:31 Sodium 139 140 Potassium 3.9 3.9 Chloride 106 107 Carbon Dioxide 30 29 BUN 17 14 Creatinine 1.04 0.89 Glucose 100 H 81 Calcium 8.5 8.3 L Cardiac Enzymes 04/13/19 Range/Units 20:13 Troponin I < 0.015 (0-0.045) ng/ml Liver Function 04/13/19 Range/Units 20:13 Total Bilirubin 0.3 (0.2-1) mg/dl AST 13 L (15-37) U/L ALT 16 (12-78) U/L Alkaline Phosphatase 77 (45-117) U/L Albumin 3.5 (3.4-5.0) gm/dl Urine 04/13/19 04/14/19 Range/Units 21:58 11:52 Urine Color Yellow Yellow Urine Appearance Clear Clear (Clear) Urine pH 6.0 7.0 (4.5-7.5) Ur Specific [place] > 1.045 H 1.021 (1.000-1.030) Urine Protein Negative Negative (Negative) Urine Glucose (UA) Negative Negative (Negative) Medications Administered Current Inpatient Medications Acetaminophen (Tylenol) 650 mg PO Q4H PRN PRN Reason: Pain or Fever Stop: 05/13/19 23:39 Albuterol (Ventolin Hfa) 2 puffs INH QID PRN PRN Reason: Shortness Of Breath Or Wheezing Stop: 05/13/19 23:39 Aspirin (Ecotrin Ectab) 81 mg PO BID [facility] Stop: 05/14/19 08:59 Last Admin: 04/14/19 08:56 Dose: 81 mg Documented by: Atenolol (Tenormin) 25 mg PO DAILY [facility] Stop: 05/14/19 08:59 Last Admin: 04/14/19 08:14 Dose: 25 mg Documented by: Atorvastatin Calcium (Lipitor) 40 mg PO DAILY [facility] Stop: 05/14/19 08:59 Last Admin: 04/14/19 08:09 Dose: 40 mg Documented by: Budesonide/Formoterol Fumarate (Symbicort 80mcg/4.5mcg) 1 puffs INH QPM [facility] Stop: 05/14/19 20:59 Clopidogrel Bisulfate (Plavix) 75 mg PO QAM [facility] Stop: 05/15/19 08:59 Cyanocobalamin (Vitamin B-12) 2,500 mcg SL DAILY [facility] Stop: 05/14/19 08:59 Last Admin: 04/14/19 08:10 Dose: 2,500 mcg Documented by: Gadobutrol (Gadavist 10ml) 10 ml IV ONCE PRN PRN Reason: Interaction Checking Stop: 04/18/19 09:25 Last Admin: 04/14/19 09:26 Dose: 10 ml Documented by: Levothyroxine Sodium (Synthroid) 50 mcg PO DAILYBB [facility] Stop: 05/14/19 06:29 Last Admin: 04/14/19 06:34 Dose: 50 mcg Documented by: Lisinopril (Zestril) 5 mg PO DAILY [facility] Stop: 05/14/19 08:59 Last Admin: 04/14/19 08:14 Dose: 5 mg Documented by: Miscellaneous Information (Pharmacist Discharge Med Rec Consult) 1 ea N/A UD PRN PRN Reason: Consult Stop: 05/13/19 23:39 Nicotine Polacrilex (Nicorette 2mg) 2 piece MT Q8H PRN PRN Reason: Smoking Cessation Nitroglycerin (Nitrostat) 0.4 mg SL UD PRN PRN Reason: Chest Pain Stop: 05/13/19 23:39 Ondansetron HCl (Zofran) 4 mg IV Q6H PRN PRN Reason: Nausea Stop: 05/13/19 23:39 Pantoprazole Sodium (Protonix) 40 mg PO BID [facility] Stop: 05/14/19 08:59 Last Admin: 04/14/19 08:09 Dose: 40 mg Documented by: Polyethylene Glycol (Miralax Powder Packet) 17 gm PO DAILY PRN PRN Reason: Constipation Stop: 05/13/19 23:39 Pyridoxine HCl (Vitamin B-6) 100 mg PO DAILY [facility] Stop: 05/14/19 08:59 Last Admin: 04/14/19 08:10 Dose: 100 mg Documented by: Thiamine HCl (Vitamin B-1) 250 mg PO DAILY [facility] Stop: 05/14/19 08:59 Last Admin: 04/14/19 08:09 Dose: 250 mg Documented by:
--- NOTE | 2019-04-14 14:23 | Consultation Report ---
DATE OF CONSULTATION: 04/14/[address] Thapa. 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 He sought this would clear up and eventually did, and he did develop a left retroorbital headache, but nothing else, and by the time he got the Emergency Room, everything was fine. He was able to walk. Speech was clear. There were no visual issues, but he was admitted for workup. A CT scan showed what was interpreted to an old left occipital infarction and subsequent MRIs have shown a subacute area of infarction involving the left occipital area and an area of infarction involving the left cerebellum. I refer the reader to the radiology reports. I reviewed the images and agree with their interpretation. He has also had angiographic studies of the intracranial vessels which were normal and the extracranial vessels which reveal some mild stenosis of the carotid system, but nothing in the vertebrals. He has also had an echocardiogram which shows no clear source of cardiogenic emboli and is negative for a PFO and shows good overall systolic function. PAST MEDICAL HISTORY: Pretty much as outlined above. MEDICATIONS AT HOME: Include albuterol, metoprolol, atorvastatin, Symbicort, Coenzyme Q10, vitamin B12, levothyroxine, lisinopril, nicotine, omeprazole, vitamin B6, vitamin B1 and aspirin two 81 mg tablets a day which is not listed on the history, but according to the patient, he takes on a regular basis. ALLERGIES: He has allergies to no known medications. PAST SURGICAL HISTORY: Reveals only a right wrist fracture. FAMILY HISTORY: Noncontributory. SOCIAL HISTORY: Reveals him to be a half a pack a day smoker for years, now down to 2 cigars daily. He used to drink heavily, but has cut down significantly and perhaps has 2 shots of whiskey a day at most. He often travels to [place] for 6 months a year and then returns to [place], and he and his have been doing this for a number of years following his halfway. REVIEW OF SYSTEMS: System review reveals no recent systemic issues, hospitalizations, problems referable to head, eyes, ears, nose and throat, cardiovascular, pulmonary, gastrointestinal, genitourinary, musculoskeletal, dermatologic, hematologic, or endocrinologic systems other than those related to his chronic active medical problems and history of present illness. He specifically denies a history of migraine headaches, and from a cardiac point of view, denies any palpitations, prior cardiac studies, although he does recall having had a long-term monitoring, perhaps a Zio patch done several years ago for reasons he does not recall. He feels currently totally asymptomatic. Neurologically, he has been up walking in the [place]. He thinks his vision is absolutely normal. He does not have a headache. He does not have any sensory disturbances, memory loss, etc. PHYSICAL EXAMINATION: VITAL SIGNS: His admission temperature was 36.4, pulse was 74, respiratory rate was 18, blood pressure 176/104, oxygen was 95%. NEUROLOGIC: Today, he is alert, cooperative, oriented in 3 spheres. Eye movements are normal. Visual mann are full. Facial motility and strength is normal. Facial sensation is normal. He has clear speech, normal protrusion of the tongue. Ocular fundi were poorly seen. Gross visual acuity is about 20-25, judging from his acuity for distant objects in the room. I do not hear any cervical bruits. Gait, station and coordination are absolutely normal without ataxia, spasticity, drift, pronation sign, tremor, tics or choreiform activity. Reflexes are hypoactive, but present at the knees, absent at the ankles, normally upper extremities. Toes are downgoing. No Kimberli signs are seen. Strength testing is excellent and sensation is intact to vibration, light touch, and temperature. ASSESSMENT AND PLAN: At this point, it is apparent that he has had a probable embolic event involving the left posterior cerebral distribution and perhaps the posterior inferior cerebellar artery or something in the left vertebral. There is no obvious dissection or other abnormality on appropriate imaging studies of the vertebral artery and there is no embolic source in the heart. This leaves the aorta or the entity of paroxysmal atrial fibrillation as potential causes. At present, I would observe him for 1 more day, probably let him go tomorrow. I would add Plavix to his regimen. I would keep this on board with the aspirin for about 21 days and then switch over to Plavix alone. His primary care physician, however, in [place] and with the CT may have an alternative plan, but this is what I would recommend. I would also suggest that he have another Zio patch procedure if indeed that is what he had in the past, just to document whether or not he has paroxysmal atrial fibrillation, this would change the anticoagulation stategy towards a novel anticoagulant or Coumadin. I suspect he will be discharged tomorrow if he remains stable and his blood pressure, etc. are acceptable and he does not go into atrial fibrillation. If he is still in the hospital, we will take a look at him in the afternoon, but I would not hold discharge pending our re-visitation as I think he had plans to go home tomorrow. I would, however, make copies of all the appropriate diagnostic studies, consultation notes, etc., so his primary care physician at the [place] and in [place] can act accordingly. He should also have copies to take to the physician who sees him in floor. ADRIAN
[2019-04-14] MEDS ORDERED: BUDESONIDE/FORMOTEROL FUMARATE 80/4.5 60 PUFFS/INHALER INH SCH (21:00)
[2019-04-15] MEDS: LEVOTHYROXINE SODIUM 50 MCG TABLET PO SCH (04:26)
[2019-04-15 05:34] LABS: Basophils # (auto) 0.03 K/uL (0-0.2); Basophils % (auto) 0.4 %; Eosinophils # (auto) 0.49 K/uL (0-0.5); Eosinophils % (auto) 6.3 %; Hematocrit (blood only) 43.3 % (42-52); Hemoglobin 15.2 g/dL (14.0-18.0); Immature Granulocytes # (auto) 0.01 K/uL (0.00-0.02); Immature Granulocytes % (auto) 0.1 %; Lymphocytes # (auto) 2.22 K/uL (1.2-3.4); Lymphocytes % (auto) 28.5 %; Mean Corpuscular Hgb Conc 35.1 g/dL (32-36); Mean Corpuscular Volume 97.5 fL (80-100); Monocytes # (auto) 0.78 K/uL (0.11-0.59); Neutrophils # (auto) 4.26 K/uL (1.4-6.5); Neutrophils % (auto) 54.7 %; Platelet Count 158 K/uL (130-400); RDW Coefficient of Variation 13.4 % (11.5-14.5); RDW Standard Deviation 47.9 fL (36.4-46.3); Red Blood Count 4.44 M/uL (4.7-6.1); White Blood Count 7.79 K/uL (4.8-10.8)
[2019-04-15 06:03] LABS: BUN Creatinine Ratio 15.5 (10-20); Calcium 8.9 mg/dl (8.5-10.1); Creatinine Clr Calc Pharmacy 56.5 ml/min; Est GFR (African American) 72.3; Est GFR (Non-African American) 62.4; Potassium 3.7 mmol/L (3.5-5.1)
[2019-04-15 06:21] LABS: Estimated Average Glucose 108 mg/dl; Hemoglobin A1C 5.4 % (4.5-5.6)
[2019-04-15] MEDS: ASPIRIN 81 MG ECTAB PO SCH (08:17)
[2019-04-15] MEDS: ATORVASTATIN 40 MG TAB PO SCH (08:17)
[2019-04-15] MEDS: PYRIDOXINE HCL 50 MG TAB PO SCH (08:18)
[2019-04-15] MEDS: CYANOCOBALAMIN (VITAMIN B-12) 2,500 MCG TAB.SUBL SL SCH (08:18)
[2019-04-15] MEDS: THIAMINE HCL 100 MG TAB PO SCH (08:18)
[2019-04-15] MEDS: PANTOprazole 40 MG TAB PO SCH (08:18)
[2019-04-15] MEDS: ATENOLOL 25 MG TABLET PO SCH (08:18)
[2019-04-15] MEDS: LISINOPRIL 5 MG TAB PO SCH (08:18)
[2019-04-15] MEDS ORDERED: CLOPIDOGREL BISULFATE 75 MG TAB PO SCH (09:00)
--- NOTE | 2019-04-15 11:13 | Hospitalist Progress Note ---
Date of Service April 15, 2019 Assessment & Plan (1) Acute left FORESTER AIDE stroke: Presented with an transient right peripheral vision loss Did not have any other acute neurological symptoms MRI did show Acute acute to subacute left FORESTER AIDE territory infarct and punctate acute to subacute lacunar infarct in the left cerebellar hemisphere Transthoracic echo is unremarkable CT of the neck showed 60% diameter narrowing of the left common carotid artery. Outpatient vascular surgery evaluation recommended . Appreciate neurology input and recommendation Has been on aspirin and Plavix is added Denies any symptoms and Manish did not have any further TIA and/or neurological symptoms He has been ambulating well without any difficulty He will be discharged home this afternoon We will continue aspirin and Plavix for 21 days and then Plavix to continue With advised for outpatient Zio patch as advised by urologist (2) COPD (chronic obstructive pulmonary disease): History of tobacco abuse Continue current inhalers Does not have any acute exacerbation (3) HTN (hypertension): Blood pressure seems to be under control We will continue current medications (4) GERD (gastroesophageal reflux disease): No additional reflux symptoms (5) Hypothyroidism: Continue replacement DVT prophylaxis SCDs and increase ambulation Will be going home this afternoon Advised to appointment with primary care physician within 7 days Advised to have ZIO patch as an outpatient Subjective 04/14 The patient was seen and examined in telemetry unit He is an 78-year-old male with significant past medical history of hypertension, tobacco abuse, COPD, hyperlipidemia and hypothyroidism was admitted with transient right peripheral visual loss Does not have any complaints today Denies any neurological symptoms 04/15 The patient was seen and examined the medical telemetry unit He remains completely asymptomatic Did not have any more TIA symptoms or any symptoms related to admission problem He is ambulating well without any difficulty He wants to go home today Review of Systems 2 Review of Systems: All systems reviewed and are unremarkable except noted below Constitutional: No apparent distress Neurologic: No focal sensory and/or motor deficit Physical Exam Physical Exam: No apparent distress at rest Constitutional: well developed and well nourished; no acute distress Eyes: PERRL, conjunctivae normal, anicteric sclerae ENMT: external ear and nose normal, oropharynx normal Neck: trachea midline, no thyromegaly Respiratory: normal respiratory effort Auscultation: lungs clear to auscultation bilaterally Cardiovascular: Rate/Rhythm: regular rate and regular rhythm Heart Sounds: no murmur Gastrointestinal (Abdomen): normal bowel sounds, soft, nontender, no hepatosplenomegaly Neurologic: PERRL, EOMI, accommodation nl, no face palsy, no dysarthria Ambulating well without any difficulty Lymphatic: no cervical or axillary lymphadenopathy Results & Data Vital Signs (Past 12 Hours) Vital Signs Temp Pulse Pulse Resp BP BP Pulse Ox 04/15/19 09:00 64 04/15/19 07:28 36.7 C 63 18 161/94 H 93 04/15/19 05:55 36.3 C L 62 16 174/93 H 93 04/15/19 04:27 163/90 H 04/15/19 03:09 36.4 C L 65 16 179/96 H 93 04/15/19 00:00 61 04/14/19 23:49 165/89 H 04/14/19 23:12 36.2 C L 66 16 181/88 H 96 Laboratory Results Short CBC 04/15/19 Range/Units 05:14 WBC 7.79 (4.8-10.8) K/uL Hgb 15.2 (14.0-18.0) g/dL Hct 43.3 (42-52) % Plt Count 158 (130-400) K/uL BMP 04/15/19 05:14 Sodium 137 Potassium 3.7 Chloride 104 Carbon Dioxide 28 BUN 17 Creatinine 1.11 Glucose 89 Calcium 8.9 Urine 04/14/19 Range/Units 11:52 Urine Color Yellow Urine Appearance Clear (Clear) Urine pH 7.0 (4.5-7.5) Ur Specific [place] 1.021 (1.000-1.030) Urine Protein Negative (Negative) Urine Glucose (UA) Negative (Negative) Medications Administered Current Inpatient Medications Acetaminophen (Tylenol) 650 mg PO Q4H PRN PRN Reason: Pain or Fever Stop: 05/13/19 23:39 Albuterol (Ventolin Hfa) 2 puffs INH QID PRN PRN Reason: Shortness Of Breath Or Wheezing Stop: 05/13/19 23:39 Aspirin (Ecotrin Ectab) 81 mg PO BID [facility] Stop: 05/14/19 08:59 Last Admin: 04/15/19 08:17 Dose: 81 mg Documented by: Atenolol (Tenormin) 25 mg PO DAILY [facility] Stop: 05/14/19 08:59 Last Admin: 04/15/19 08:18 Dose: 25 mg Documented by: Atorvastatin Calcium (Lipitor) 40 mg PO DAILY [facility] Stop: 05/14/19 08:59 Last Admin: 04/15/19 08:17 Dose: 40 mg Documented by: Budesonide/Formoterol Fumarate (Symbicort 80mcg/4.5mcg) 1 puffs INH QPM [facility] Stop: 05/14/19 20:59 Last Admin: 04/14/19 21:20 Dose: 1 puffs Documented by: Clopidogrel Bisulfate (Plavix) 75 mg PO QAM [facility] Stop: 05/15/19 08:59 Last Admin: 04/15/19 08:18 Dose: 75 mg Documented by: Cyanocobalamin (Vitamin B-12) 2,500 mcg SL DAILY [facility] Stop: 05/14/19 08:59 Last Admin: 04/15/19 08:18 Dose: 2,500 mcg Documented by: Gadobutrol (Gadavist 10ml) 10 ml IV ONCE PRN PRN Reason: Interaction Checking Stop: 04/18/19 09:25 Last Admin: 04/14/19 09:26 Dose: 10 ml Documented by: Levothyroxine Sodium (Synthroid) 50 mcg PO DAILYBB [facility] Stop: 05/14/19 06:29 Last Admin: 04/15/19 04:26 Dose: 50 mcg Documented by: Lisinopril (Zestril) 5 mg PO DAILY [facility] Stop: 05/14/19 08:59 Last Admin: 04/15/19 08:18 Dose: 5 mg Documented by: Miscellaneous Information (Pharmacist Discharge Med Rec Consult) 1 ea N/A UD PRN PRN Reason: Consult Stop: 05/13/19 23:39 Nicotine Polacrilex (Nicorette 2mg) 2 piece MT Q8H PRN PRN Reason: Smoking Cessation Nitroglycerin (Nitrostat) 0.4 mg SL UD PRN PRN Reason: Chest Pain Stop: 05/13/19 23:39 Ondansetron HCl (Zofran) 4 mg IV Q6H PRN PRN Reason: Nausea Stop: 05/13/19 23:39 Pantoprazole Sodium (Protonix) 40 mg PO BID [facility] Stop: 05/14/19 08:59 Last Admin: 04/15/19 08:18 Dose: 40 mg Documented by: Polyethylene Glycol (Miralax Powder Packet) 17 gm PO DAILY PRN PRN Reason: Constipation Stop: 05/13/19 23:39 Pyridoxine HCl (Vitamin B-6) 100 mg PO DAILY [facility] Stop: 05/14/19 08:59 Last Admin: 04/15/19 08:18 Dose: 100 mg Documented by: Thiamine HCl (Vitamin B-1) 250 mg PO DAILY [facility] Stop: 05/14/19 08:59 Last Admin: 04/15/19 08:18 Dose: 250 mg Documented by:
[2019-04-15] MEDS ORDERED: STROKE PATIENT DISCHARGE STA (13:31)
--- NOTE | 2019-04-15 14:17 | Pharmacy Report ---
Pharmacist Stroke Counseling - Date of Service April 15, 2019 - Scope: Pharmacy has been consulted to provide medication discharge counseling for this patient admitted with stroke as per the Pharmacist Discharge Counseling for Stroke Patients Protocol. - Medications on Discharge: Home Medications Medication Instructions Recorded Confirmed Symbicort 1 puff INHALATION QPM 04/13/19 04/13/19 albuterol sulfate [Ventolin HFA] 2 puff INHALATION QID PRN 04/13/19 04/13/19 atenolol 25 mg PO DAILY 04/13/19 04/13/19 atorvastatin 40 mg PO DAILY 04/13/19 04/13/19 coenzyme Q10 [Co Q-10] 100 mg PO DAILY 04/13/19 04/13/19 cyanocobalamin (vitamin B-12) 2,500 mcg PO DAILY 04/13/19 04/13/19 levothyroxine 50 mcg PO DAILY 04/13/19 04/13/19 lisinopril 5 mg PO DAILY 04/13/19 04/13/19 nicotine (polacrilex) [Nicorette] 2 mg BUCCAL Q8H PRN 04/13/19 04/13/19 pyridoxine (vitamin B6) [Vitamin 100 mg PO DAILY 04/13/19 04/13/19 B-6] thiamine HCl (vitamin B1) [Vitamin 250 mg PO DAILY 04/13/19 04/13/19 B-1] aspirin [Aspir-81] 81 mg PO BID 04/14/19 04/14/19 New Rx's Medication Instructions Recorded clopidogrel 75 mg PO QAM 30 Days #30 tab 04/15/19 pantoprazole 40 mg PO BID 30 Days #60 tab 04/15/19 - Action: The above medications, specifically ones for stroke treatment/prophylaxis, have been reviewed in detail with the patient and/or patient field sales representative(s) prior to discharge. This includes indication, common adverse reactions, drug interactions, and medication administration. Medication counseling has been employed using the teach-back method to ensure understanding. - Outcome: The patient and/or patient field sales representative(s) have demonstrated understanding of the medications. Please note, they are aware that the pharmacist will call them within 72 hours post-discharge to confirm that the appropriate medications are being taken and answer any further medication related questions the patient might have at that time. Contact information Individual to be contacted: Gabi Relationship to patient (if applicable): significant other Phone number: Best time to call: after 0900 Additional comments: Spoke with PT and significant other bedside. Discussed taking ASA 81mg BID + Plavix 75mg QAM for 21 days. then just plavix monotherapy. D/w pt theoretical d- di bt plavix and omeprazole. protonix will be taken in place of omeprazole. Thank you for allowing pharmacy to be involved in the care of this patient. Please call [phone] or [phone] with any additional questions
--- NOTE | 2019-04-16 08:07 | Discharge Summary ---
Date of Service April 16, 2019 Admission HPI Per Admitting Provider DICTATED BY: Clayton Payne MD DATE OF ADMISSION: 04/13/2019 CHIEF COMPLAINT: Transient right peripheral vision loss. HISTORY OF PRESENT ILLNESS: This 78-year-old male with past medical history significant for hypertension, tobacco abuse, COPD, hyperlipidemia, hypothyroidism, GERD, presents with alcoholism, presents with transient right peripheral vision loss. The patient is visiting his daughter's house. He and his live about 3 hours from here. They were playing cards today when his suddenly noticed right eye peripheral vision loss. He says it lasted for about 1-2 hours, now he is back to his normal and never had this issue before. He had some left frontal headache, but that is gone now. He is currently resting comfortably and he is hemodynamically stable. Denies any other complaints. Currently no headache, no dizziness, currently seeing okay. No earache, no runny nose, no sore throat, no difficulty swallowing. Appetite is good. Sleeps okay. He uses CPAP at night. No night sweats. No recent weight loss. He thinks, he might have gained a little bit of weight. No chest pain, no shortness of breath. Has occasional cough which is usual for him. No fever, no chills, no nausea, no vomiting, no abdominal pain. Normal bowel and bladder movements. No blood in the stools, no black stools, no hematuria, no burning micturition. No swelling in the legs. He says couple of weeks ago for couple of minutes had difficulty ambulating because of weakness in the legs, but ambulating fine since then.. Currently he is walking, ambulating fine without any difficulty. He has also history of chronic back pain, takes Tylenol and plan to see a pain doctor next week. Admission Exam Per Admitting Provider GENERAL: The patient is of moderate build, not in acute distress. VITAL SIGNS: Temperature 36.4, pulse 70, respiratory rate 18, blood pressure 176/104, oxygen 95% room air. HEENT: No pallor, no icterus. Pupils equal, round, reactive to light. Extraocular muscles intact. Able to count fingers in all 4 quadrants in both eyes. NECK: No JVD, no neck masses, no carotid bruits. CARDIOVASCULAR: S1, S2 heard, regular rate and rhythm, no murmur, no gallop. RESPIRATORY SYSTEM: Normal AP diameter. No accessory muscle use. No wheezing, no crackles. ABDOMEN: Soft, bowel sounds present. Nontender. No distention. CENTRAL NERVOUS SYSTEM: Cranial nerves II-XII grossly nonfocal. Pulse 5/5 in all extremities. No pronator drift. [id number] test normal. Heel to [place] test normal. Sensation is intact. Position sense intact. Babinski negative. EXTREMITIES: No edema, no erythema. Principal Diagnosis Acute left BLACK OXIDE COATING EQUIPMENT TENDER territory stroke, hypertension, stable COPD Discharge Exam Constitutional well developed and well nourished; no acute distress Eyes PERRL, conjunctivae normal, anicteric sclerae ENMT external ear and nose normal, oropharynx normal Neck trachea midline, no thyromegaly Respiratory normal respiratory effort Auscultation: lungs clear to auscultation bilaterally Cardiovascular Rate/Rhythm: regular rate and regular rhythm Heart Sounds: no murmur Gastrointestinal (Abdomen) normal bowel sounds, soft, nontender, no hepatosplenomegaly Neurologic PERRL, EOMI, accommodation nl, no face palsy, no dysarthria Lymphatic no cervical or axillary lymphadenopathy Discharge Data Allergies Allergy/AdvReac Type Severity Reaction Status Date / Time No Known Allergies Allergy Unverified 04/13/19 21:52 Consultations 04/13/19 23:40 Consult Case Management - Discharge Planning Routine 04/14/19 08:00 Consult Neurology Routine Ordered Studies 04/13/19 20:06 CT head/brain wo con Stat 04/13/19 20:07 CT angio head w con Stat CT angio neck with con Stat 04/13/19 23:40 MR brain wo/w con Urgent Hospital Course (1) 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 Outpatient vascular surgery evaluation recommended . Appreciate neurology input and recommendation Has been on aspirin and Plavix is added Denies any symptoms and Manish did not have any further TIA and/or neurological symptoms He has been ambulating well without any difficulty He will be discharged home this afternoon We will continue aspirin and Plavix for 21 days and then Plavix to continue With advised for outpatient Zio patch as advised by urologist (2) COPD (chronic obstructive pulmonary disease): History of tobacco abuse Continue current inhalers Does not have any acute exacerbation (3) HTN (hypertension): Blood pressure seems to be under control We will continue current medications (4) GERD (gastroesophageal reflux disease): No additional reflux symptoms (5) Hypothyroidism: Continue replacement DVT prophylaxis SCDs and increase ambulation Will be going home this afternoon Advised to appointment with primary care physician within 7 days Advised to have ZIO patch as an outpatient Total Time Total Time Spent Total Time Spent (In Minutes): 40 minutes Total Time Includes: Examination of the Patient, Discharge Planning and Medication Reconciliation Discharge Plan Discharge Items Patient Disposition: Home - Self-Care Reason For Visit: VISUAL DISTURBANCE Discharge Diagnosis: Acute left BLACK OXIDE COATING EQUIPMENT TENDER territory stroke, hypertension, stable COPD Condition: Good Discharge Goals: Decrease discomfort, Improve function and Increase independence Activity: Resume your previous activity Non-emergency contact: Primary Care Provider Call non-emergency contact if: you have any medication questions and your symptoms worsen Follow-up/Referrals: PCP,NO [Primary Care Provider] - (Please make an appointment with your primary care physician within 7 days. You will need to have a ZIO Patch placed for further evaluation of your cardiac rhythm. Please make an appointment with neurologist and 2 to 3 weeks. Please arrange for a vascular surgery evaluation as an outpatient for 60% diameter narrowing of the left common carotid artery.) Diet: Heart Healthy Addtl Provider Instructions: Risk Factors for Stroke: You can reduce your chances of stroke by working with your medical provider to adopt a healthy lifestyle. Some specific ways to lower your chance of stroke are: * If you are a smoker, now is the time to stop smoking cigarettes * If you are diabetic, improve the control of your blood sugars * Avoid excessive amounts of alcohol * Control high blood pressure * Lose weight if you are overweight * Be sure to lead an active lifestyle * Eat a healthy diet low in salt, cholesterol and fat You should know about other risk factors for stroke that you are unable to control. These include: * Age 55 years or older * Male gender * Certain racial groups: , or / * Family History of Stroke, Mini stroke or Heart Attack * Sickle Cell Disease Follow Up: It is important for you to keep your follow up appointments with your medical provider. Who to Call and When: Medical Emergencies: Call 911 immediately if you experience any of the following warning signs and symptoms of Stroke: * Sudden numbness or weakness of the face, arm or leg, especially on one side of the body * Sudden confusion, trouble speaking or understanding * Sudden trouble seeing in one or both eyes * Sudden trouble walking, dizziness, loss of balance or coordination * Sudden severe headache with no cause Do not delay calling 911 if you experience any warning signs or symptoms of a stroke. Delay in seeking medical attention may affect what treatments can be given to you. . Prescriptions: New clopidogrel 75 mg Tablet 75 mg PO QAM 30 Days Qty: 30 RF: 0 pantoprazole 40 mg Tablet,Delayed Release (Dr/Ec) 40 mg PO BID 30 Days Qty: 60 RF: 0 Continued levothyroxine 50 mcg Tablet 50 mcg PO DAILY RF: 0 lisinopril 5 mg Tablet 5 mg PO DAILY RF: 0 atenolol 25 mg Tablet 25 mg PO DAILY RF: 0 cyanocobalamin (vitamin B-12) 2,500 mcg Tablet 2,500 mcg PO DAILY RF: 0 albuterol sulfate [Ventolin HFA] 90 mcg/actuation Hfa Aerosol Inhaler 2 puff INHALATION QID PRN (Reason: Shortness Of Breath Or Wheezing) RF: 0 Symbicort 80-4.5 mcg/actuation Hfa Aerosol Inhaler 1 puff INHALATION QPM RF: 0 pyridoxine (vitamin B6) [Vitamin B-6] 100 mg Tablet 100 mg PO DAILY RF: 0 coenzyme Q10 [Co Q-10] 100 mg Capsule 100 mg PO DAILY RF: 0 thiamine HCl (vitamin B1) [Vitamin B-1] 250 mg Tablet 250 mg PO DAILY RF: 0 atorvastatin 40 mg Tablet 40 mg PO DAILY RF: 0 nicotine (polacrilex) [Nicorette] 2 mg Lozenge 2 mg BUCCAL Q8H PRN (Reason: Smoking Cessation) RF: 0 aspirin [Aspir-81] 81 mg Tablet,Delayed Release (Dr/Ec) 81 mg PO BID RF: 0 Discontinued omeprazole 20 mg Tablet,Delayed Release (Dr/Ec) 20 mg PO BID RF: 0 Stand-Alone Forms: [facility] Discharge Orders: Discharge Order (Routine); Ordered 04/15/19 Ordered By: Blayne Thapa Admission Data Admit Date/Time: 04/13/19 22:54 Attending Provider: Blayne Thapa Admit Provider: Clayton Payne Primary Care Provider: PCP,NO Other Providers: Mable Rasmussen ; Jessy Saldana ; Rainer Jerez ; Jessy Nugent ; Derek Paredes Service: Telemetry Other Interventions: Discharge Summary Assessment (RN) Last Done: 04/15/19 14:00 DC Date/Time DO NOT enter until pt leaves facility: 04/15/19 14:42
--- NOTE | 2019-04-17 10:44 | Pharmacy Report ---
Pharmacist Post D/C Phone Note - Phone Note: Date of phone call: April 17, 2019. Individual with whom pharmacist spoke to: RAUL BRUNO The patient and/or patient traffic workforce representative(s) were unable to be reached for a follow-up phone call within the 72 hour time frame. Discharge counseling pharmacist contact information has already been provided to the patient should questions arise. Thank you for allowing us to be involved in the care of this patient. - Home Medications: Home Medications Medication Instructions Recorded Confirmed Symbicort 1 puff INHALATION QPM 04/13/19 04/13/19 albuterol sulfate [Ventolin HFA] 2 puff INHALATION QID PRN 04/13/19 04/13/19 atenolol 25 mg PO DAILY 04/13/19 04/13/19 atorvastatin 40 mg PO DAILY 04/13/19 04/13/19 coenzyme Q10 [Co Q-10] 100 mg PO DAILY 04/13/19 04/13/19 cyanocobalamin (vitamin B-12) 2,500 mcg PO DAILY 04/13/19 04/13/19 levothyroxine 50 mcg PO DAILY 04/13/19 04/13/19 lisinopril 5 mg PO DAILY 04/13/19 04/13/19 nicotine (polacrilex) [Nicorette] 2 mg BUCCAL Q8H PRN 04/13/19 04/13/19 pyridoxine (vitamin B6) [Vitamin 100 mg PO DAILY 04/13/19 04/13/19 B-6] thiamine HCl (vitamin B1) [Vitamin 250 mg PO DAILY 04/13/19 04/13/19 B-1] aspirin [Aspir-81] 81 mg PO BID 04/14/19 04/14/19 New Rx's Medication Instructions Recorded clopidogrel 75 mg PO QAM 30 Days #30 tab 04/15/19 pantoprazole 40 mg PO BID 30 Days #60 tab 04/15/19
== END 2019-04-15 14:42 | disposition home or self-care (01) | DRG 66 ==
LOC: ED 19:41 → 2S 22:54 → SUATTDRO 22:54 → 2S 23:20 → 2N 04-15 06:14